=== PATIENT | female | born 1970 | race Caucasian/White ===

== ENCOUNTER 2019-11-10 09:51 | Emergency (ER) | payer BC, SELFPAY ==
[2019-11-10 09:56] VITALS: BP 150/86; PULSE 91; RESP 16; TEMP 36.6; O2SAT 98
--- NOTE | 2019-11-10 10:00 | DI.RAD_ITS ---
EXAM: XR FINGER LT MIDDLE CLINICAL HISTORY: pain, injury, crushed with stone. TECHNIQUE: 2D digital imaging was performed. COMPARISON: None. FINDINGS: BONES: No acute fracture is present. No bony destructive lesion is seen. JOINTS: No dislocation present. SOFT TISSUE: Normal. IMPRESSION: No evidence of acute fracture, dislocation, or subluxation. DATA REPOSITORY: RADIATION DOSE DELIVERED:
--- NOTE | 2019-11-10 10:09 | ED.GENADUL_ITS ---
Discharge Plan Disposition Patient Disposition: HOME Condition: Stable Discharge Details Chief Complaint: Orthopedic Clinical Impression: Crushing injury of finger of left hand Primary Care Provider: Leandra,Local ED Provider: Myrna Leija Home Meds and New Rx's Prescriptions: Continued dextroamphetamine-amphetamine [Adderall] 15 mg Tablet 15 mg PO DAILY RF: 0 metoprolol tartrate 25 mg Tablet 25 mg PO DAILY RF: 0 Discharge Instructions Instructions: R.I.C.E. Treatment (ED) Additional Instructions: Wash area with soap and water once or twice daily. Apply topical antibiotic ointment to the wound. Use finger splint for 1 week. And began ranging your finger for example using a small ball in your hand to start squeezing several times frequently throughout the day once pain is resolving. Rest. Activities as tolerated. Elevate injury to prevent swelling. Ice to the area of discomfort for 15 min. 3-5 times daily. Motrin every 8 hours with food or Tylenol every 6 hours for soreness if needed over the counter for comfort. X-rays unremarkable for any identified fracture Followup with orthopedic doctor as discussed for any alarming symptoms as discussed. Recheck with PCP for persistence of pain if needed lasting greater than 1 week Return for any worsening or concerns sooner if needed. Referrals: Luis Huffman MD [ [facility] STAFF PHYSICIAN] - Medical Decision Making Very pleasant 48-year-old patient presenting for the concern of crushing her left third digit between stones prior to arrival. Patient sustained a small wound to the palmar aspect overlying the DIP joint and is complaining of digit pain focally. No obvious nail injury. Sensation intact throughout the digit. Flexion extension intact however range of motion is somewhat limited at the DIP joint due to pain. Will plan to obtain x-ray. Will provide Tylenol for discomfort. Wound appears superficial on initial evaluation. Tetanus up-to-date. X-ray unremarkable for identified fracture. Reevaluated patient's wound after cleaning and irrigating and there is a small superficial flap with no significant deep extension. Approximately 1 cm. Will manage wound superficially with soap and water, antibiotic ointment and a dressing. No indication for sutures. Will avoid glue given location over flexing joint as well as Steri-Strips. Patient agrees with this conservative plan of care. Will provide finger splint. Rice encouraged. Wound management encouraged and discussed. The patient was stable and requested discharge. Prior to discharge, my usual and customary return precautions were reviewed with the patient - this included follow-up instructions and reasons to return to the Emergency Department if conditions worsens, does not improve as expected, or other new concerns arise. HPI General Date/Time Provider Initiated Documentation: 11/10/19 10:08 . HPI Narrative: Is a 48-year-old patient presenting the emergency room for complaints of left third finger injury. Patient was moving stones building a rock wall and accidentally a stone was dropped crushing her left third digit between stones. Patient reports bleeding noted, a wound is noted on the palmar aspect of her third digit. Pain described in the middle and distal phalanx as well as the DIP joint. Patient's tetanus is up-to-date. Patient denies numbness, tingling or weakness. Pain with attempts of range of motion. No obvious deformities. Denies any other sites of pain or concerns. Injury occurred prior to arrival. Patient denies any recent Covid exposure. Patient denies chest pain, difficulty breathing shortness of breath or wheezing. No muscle aches, ill feeling, malaise. Denies fever. Related Data Home Medications Medication Instructions Recorded Confirmed dextroamphetamine-amphetamine 15 mg PO DAILY 11/10/19 11/10/19 [Adderall] metoprolol tartrate 25 mg PO DAILY 11/10/19 11/10/19 Allergies Allergy/AdvReac Type Severity Reaction Status Date / Time adhesive tape Allergy Intermediate Other (See Unverified 11/10/19 10:12 Comment) General Stated Complaint: Orthopedic JIMY: 4 Review of Systems All systems reviewed & are unremarkable except as noted in HPI and below ON LICENSE OF [facility] Social History Alcohol Intake: current Alcohol Intake frequency: 3 or more drinks per day Alcohol type: beer Substance use type: does not use Do you feel safe at home: Yes Do you feel safe in your relationship?: Yes Exam Narrative Exam Narrative: CONST: Healthy appearing patient, in no acute distress. Well hydrated. Alert and oriented. HENMT: Head nomocephalic, normal to inspection. Atraumatic. Hearing grossly normal. EYES: General normal appearance. Alignment normal. Eyelids normal. Conjunctiva normal. NECK: Normal visual inspection. FROM. Trachea midline. No Midline tenderness. CHEST: Normal insepection of the chest. RESP: Normal respiratory effort. Speaking full sentences. No cough. No audible wheezing. No retractions. CARDIO: No JVD. MUSCULOSKELETAL: Focused exam left arm. No elbow pain with palpation, forearm pain with palpation or wrist pain with palpation. Full range of motion of elbow and wrist joint. Pain noted with palpation of the left third digit specifically the middle and distal phalanx as well as the DIP joint. There is a small superficial wound noted on the palmar aspect overlying the DIP crease. Bleeding is controlled. Sensation is intact distally. Flexion extension intact with pain. No obvious ligamentous injury. No other sites of pain with palpation throughout the hand. SKIN: Normal. Dry. No rashes. NEURO: Alert and awake. Speech clear. PSYCH: Normal affect. Cooperative. Course Vital Signs Vital signs: Vital Signs Temperature 36.6 C 11/10/19 09:56 Pulse 91 H 11/10/19 09:56 Respiratory Rate 16 11/10/19 09:56 Blood Pressure 150/86 H 11/10/19 09:56 Pulse Oximetry 98 11/10/19 09:56 Temperature 36.6 C 11/10/19 09:56 Temperature Source Skin 11/10/19 09:56 Pulse 91 H 11/10/19 09:56 Respiratory Rate 16 11/10/19 09:56 Respiratory Effort Non-Labored 11/10/19 10:03 Blood Pressure 150/86 H 11/10/19 09:56 Blood Pressure Position Supine 11/10/19 09:56 Pulse Oximetry 98 11/10/19 09:56 Oxygen Delivery Method Room Air 11/10/19 09:56 Oxygen Flow Rate 0 11/10/19 09:56 Pain Level 10 11/10/19 09:56
[2019-11-10] MEDS: Acetaminophen 500 MG TAB 1000 MG PO (10:15)
[2019-11-10 11:05] VITALS: BP 150/86; PULSE 91; RESP 16; TEMP 36.6; O2SAT 98
== END 2019-11-10 11:04 | disposition home or self-care (01) ==
PROVIDERS: Emergency Provider Physician Assistant
DX: S67.193A Crushing injury of left middle finger, initial encounter (principal); W23.0XXA Caught, crushed, jammed, or pinched between moving objects, initial encounter
CPT/HCPCS: 29130; 99283; 73140